=== PATIENT | female | born 1995 | race Caucasian/White ===

== ENCOUNTER 2017-08-23 22:52 | Emergency (ER) | payer OTHER ==
[~2017-08-23] VITALS: Ht 152.4 cm; Wt 52.4 kg
[2017-08-23 22:54] VITALS: TEMP 37.1; Ht 152.4 cm; Wt 52.4 kg
[2017-08-23 23:22] LABS: BASO % 0.5 %; BASO ABS # 0.04 K/uL (0-0.2); EOS % 1.5 %; EOS ABS # 0.11 K/uL (0-0.5); HEMOGLOBIN 13.5 g/dL (12.0-16.0); IG# 0.01 K/uL (0.00-0.02); LYMPH % 38.1 %; MEAN CELL VOLUME 86.5 fL (80-100); MEAN CORPUSCULAR HEMOGLOBIN 29.9 pg (25-34); MEAN CORPUSCULAR HGB CONC 34.6 g/dl (32-36); MONO % 8.6 %; MONO ABS # 0.63 K/uL (0.11-0.59); NEUT % 51.2 %; NEUT ABS # 3.75 K/uL (1.4-6.5); PLATELET COUNT 294 K/uL (130-400); RED CELL DISTRIBUTION WIDTH CV 12.9 % (11.5-14.5); RED CELL DISTRIBUTION WIDTH SD 41.1 fL (36.4-46.3); WHITE BLOOD COUNT 7.34 K/uL (4.8-10.8)
[2017-08-23 23:52] LABS: ALBUMIN 3.9 gm/dl (3.4-5.0); CREATININE 0.99 mg/dl (0.60-1.20); POTASSIUM 3.6 mmol/L (3.5-5.1)
[2017-08-24 00:03] LABS: TOTAL PROTEIN 7.4 gm/dl (6.4-8.2)
[2017-08-24] MEDS ORDERED: BCPILLS PO (00:39)
--- NOTE | 2017-08-24 00:46 | EMERGENCY ROOM VISIT NOTE ---
History First contact with patient: 22:59 Chief Complaint: VAGINAL BLEEDING Stated Complaint: IRREGULAR BLEEDING History of Present Illness The patient is a 22 year old female who presents to the Emergency Room with complaints of vaginal bleeding for the past few days who states she is not due for her menstrual until next week. Patient was on antibiotics 2 weeks ago for bacterial vaginosis. Patient states her menstrual cycles are normally pretty regular. No chance of . Patient denies chest pain, dyspnea, fever, chills, abdominal pain, back pain, flank pain, urinary symptoms, vaginal odor, chance for STI's. Review of Systems An 10 system review of systems was completed with positives and pertinent negatives listed in the HPI. Past Medical/Surgical History None Social History Smoking Status: Never Smoker Smokeless Tobacco Use: No Drug Use: none Marital Status: in relationship Occupation Status: [employer] student Physical Exam Vital Signs Date Time Temp Pulse Resp B/P (MAP) Pulse Ox O2 Delivery O2 Flow Rate FiO2 08/24/17 00:11 78 16 122/52 99 Room Air 08/23/17 22:54 37.1 89 18 133/83 100 Room Air Physical Exam VITALS: Vitals are noted on the nurse's note and reviewed by myself. Vital signs stable. GENERAL: Pleasant female, in no acute distress, nondiaphoretic, well-developed well-nourished. SKIN: Capillary reflex less than 2 seconds. HEENT: Normocephalic. PERRLA. EOMI. Nares patent. Mucous membranes moist. Neck is supple without nuchal rigidity. HEART: Regular rate and rhythm without murmurs gallops or rubs. LUNGS: Clear to auscultation bilaterally without wheezes, rales or rhonchi. No retractions or accessory muscle use. ABDOMEN: Positive bowel sounds x 4. Normal tympanic percussion. Soft, nontender, without masses or organomegaly. Aragon sign negative. No guarding or rebound tenderness. No CVA tenderness MUSCULOSKELETAL: No gross musculoskeletal defects. NEURO: Patient was alert and oriented to person place and time. Normal sensation to light and sharp touch. . No focal neurological deficits. Medical Decision & Procedures Laboratory Results 08/23/17 23:10 Red Blood Count 4.51, Mean Corpuscular Volume 86.5, Mean Corpuscular Hemoglobin 29.9, Mean Corpuscular Hemoglobin Concent 34.6, Mean Platelet Volume 9.0, Neutrophils (%) (Auto) 51.2, Lymphocytes (%) (Auto) 38.1, Monocytes (%) (Auto) 8.6, Eosinophils (%) (Auto) 1.5, Basophils (%) (Auto) 0.5, Neutrophils # (Auto) 3.75, Lymphocytes # (Auto) 2.80, Monocytes # (Auto) 0.63, Eosinophils # (Auto) 0.11, Basophils # (Auto) 0.04 08/23/17 23:10 Test 08/23/17 23:04 08/23/17 23:10 Urine Test NEG (NEG) White Blood Count 7.34 K/uL (4.8-10.8) Red Blood Count 4.51 M/uL (4.2-5.4) Hemoglobin 13.5 g/dL (12.0-16.0) Hematocrit 39.0 % (37-47) Mean Corpuscular Volume 86.5 fL (80-100) Mean Corpuscular Hemoglobin 29.9 pg (25-34) Mean Corpuscular Hemoglobin Concent 34.6 g/dl (32-36) Platelet Count 294 K/uL (130-400) Mean Platelet Volume 9.0 fL (7.4-10.4) Neutrophils (%) (Auto) 51.2 % Lymphocytes (%) (Auto) 38.1 % Monocytes (%) (Auto) 8.6 % Eosinophils (%) (Auto) 1.5 % Basophils (%) (Auto) 0.5 % Neutrophils # (Auto) 3.75 K/uL (1.4-6.5) Lymphocytes # (Auto) 2.80 K/uL (1.2-3.4) Monocytes # (Auto) 0.63 K/uL (0.11-0.59) Eosinophils # (Auto) 0.11 K/uL (0-0.5) Basophils # (Auto) 0.04 K/uL (0-0.2) RDW Standard Deviation 41.1 fL (36.4-46.3) RDW Coefficient of Variation 12.9 % (11.5-14.5) Immature Granulocyte % (Auto) 0.1 % Immature Granulocyte # (Auto) 0.01 K/uL (0.00-0.02) Anion Gap 6.0 mmol/L (3-11) Est Creatinine Clear Calc Drug Dose 65.1 ml/min Estimated GFR () 95.1 Estimated GFR (Non- 82.0 BUN/Creatinine Ratio 15.0 (10-20) Calcium Level 9.0 mg/dl (8.5-10.1) Total Bilirubin 0.3 mg/dl (0.2-1) Aspartate Amino Transf (AST/SGOT) 4 U/L (15-37) Alanine Aminotransferase (ALT/SGPT) 15 U/L (12-78) Alkaline Phosphatase 48 U/L (45-117) Total Protein 7.4 gm/dl (6.4-8.2) Albumin 3.9 gm/dl (3.4-5.0) Globulin 3.5 gm/dl (2.5-4.0) Albumin/Globulin Ratio 1.1 (0.9-2) Thyroid Stimulating Hormone (TSH) 1.880 uIu/ml (0.300-4.500) ED Course Prior records/ancillary studies reviewed. Triage Nursing notes reviewed. Additional history obtained from the boyfriend The patient's history was concerning for vaginal bleeding and abdominal pain. Differential diagnosis: Etiologies such as ectopic , dysfunction uterine bleeding, bleeding dyscrasia, trauma, infection, as well as others were entertained. Physical examination: As above. Vitals signs revealed stable. ER treatment provided: Patient was observed On reassessment the patient felt better. Diagnostic interpretation by me: The labs revealed stable H&H. Negative hCG. Mild hyperglycemia without DKA Imaging studies: Normal bilateral ovaries. No cyst or torsion. Small amount of fluid is noted in the in the Endo cervical canal. Recommend correlation with menstruation. Ultrasound as above This appears to be consistent with abnormal menstrual bleeding. This could be secondary to patient's recent antibiotics. Patient had stable H&H. She is neurovascularly and neurologically intact. She does not have acute abdomen on exam. She was not . No acute findings on ultrasound. She is advised to rest, stay hydrated and follow-up with family care in a few days here or here in the ER sooner for heavy bleeding, pain, worsening signs or symptoms or as needed.. By the evaluation outlined above emergent etiologies such as bleeding dyscrasia, ectopic , trauma, as well as others were deemed relatively unlikely. The pt informed about the findings as listed above. All questions were answered and pleased with the treatment. Return instructions were outlined and the patient was discharged in stable condition. Referral: The patient was referred to [facility] for follow-up in 2 to 3 days for a recheck of her current condition. Case reviewed with my attending The chart was completed utilizing [employer] Speech voice recognition software. Grammatical errors, random word insertions, pronoun errors, and incomplete sentences are an occassional consequence of this system due to software limitations, ambient noise, and hardware issues. Any formal questions or concerns about the content, text, or information contained within the body of this dictation should be directly addressed to the physician admin assistant for clarification. Medical Decision As above Medication Reconcilliation Current Medication List: was personally reviewed by me Blood Pressure Screening Patient's blood pressure: Normal blood pressure Blood pressure disposition: Elevated BP felt to be situational Impression Primary Impression: Abnormal vaginal bleeding Departure Information Dispostion Home / Self-Care Condition GOOD Referrals [facility] (PCP) Patient Instructions My [facility] Additional Instructions Rest. Stay well hydrated. Ibuprofen(Motrin, Advil) may be used for fever or pain. Use 600mg every six hours as needed. Take with food. Avoid using more than 2400mg in a 24 hour period. Do not use 2400mg per day for more than three consecutive days without physician direction. Prolonged inappropriate use can lead to stomach upset or ulcers. (AND/OR) Acetaminophen(Tylenol) may be used for fever or pain. Use 1000mg every six hours as needed. Avoid using more than 3000mg in a 24 hour period. Rest and drink plenty of fluids as tolerated. Continue current medications. Return to the ER immediately for worsening or persistent heavy vaginal bleeding , abdominal pain, vomiting, fevers, chest pains, difficulty breathing, worsening of your condition, or as needed. Follow up with [facility] in 2-3 days for a recheck of your current condition.
[2017-08-24 01:10] VITALS: BP 111/70; PULSE 67; O2SAT 98
--- NOTE | 2017-08-24 07:03 | DIAGNOSTIC IMAGING REPORT ---
TRANSVAG-FEMALE PELVIS CLINICAL HISTORY: 22 years-old Female presenting with bleeding, discomfort. TECHNIQUE: Real-time grayscale and color and spectral Doppler ultrasound imaging of the pelvis was performed first using a transabdominal probe and subsequently transvaginal for better characterization. COMPARISON: None. FINDINGS: Uterus: Normal. Anteverted anteflexed. The uterus measures 8.6 x 3.9 x 1.4 cm. Endometrial stripe measures less than 1 mm in thickness. Endometrium normal-appearing. Cervix contains trace endocervical fluid. Right adnexa: Right ovary normal. Right ovary measures 3.9 x 1.4 x 1.9 cm. Normal color Doppler flow and arterial and venous waveforms within the ovarian parenchyma. Left adnexa: Left ovary normal. Left ovary measures 3.5 x 1.9 x 2.1 cm. Normal color Doppler flow and arterial and venous waveforms within the ovarian parenchyma. Other: Trace free fluid, likely physiologic. IMPRESSION: No significant abnormality identified within the pelvis. Fluid in the endocervical canal may related to menstruation. Electronically signed by: Abdi Cleary M.D. 08/24/2017 7:02 AM Dictated Date/Time: 08/24/2017 6:50 AM
== END 2017-08-24 01:10 | disposition home or self-care (01) ==
LOC: C.EDB 22:54 → C.EDC 08-24 01:10
DX: N93.9 Abnormal uterine and vaginal bleeding, unspecified (principal)